=== PATIENT | female | born 1995 | race Caucasian/White ===

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

== ENCOUNTER 2019-12-24 12:53 | Outpatient (CLI) | payer MEDICAID ==
[~2019-12-24] VITALS: Ht 167.6 cm; Wt 101.4 kg
--- NOTE | 2019-12-24 12:50 | NUR ---
PATIENT HERE TO LR 6 WITH COMPLAINS OF CRAMPING IN ABDOMEN. PATIENT STATES SHE THINKS SHE HAS FOOD POISONING. SHE STATES HER POOP IS FORMED, BUT SOFT AND SMELLS LIKE HOT WINGS FROM LAST NIGHT. PATIENT HAS NOT HAD NAUSEA/ VOMITING. PATIENT ON EFM, SVE, ASSESEMENT OBTAINED. PATIENT HERE ALONE. WATER AND CRACKERS PROVIDED. PATIENT HAS 50 MLS EMESIS, CLEAR, WATERY. PATIENT DRINKING WATER AND EATING CRACKERS. PATIENT DENIES LEAKING OF FLUID, BLEEDING, MILD CRAMPY/ CONTRACTIONS. PATIENT CAN SIT UP IN BED TO BREATHE THROUGH CONTRACTIONS. BUTTON PROVIDED TO PATIENT TO PRESS WHEN HAVING CONTRACTIONS FOR ADEQUATE MONITORING
[2019-12-24 12:59] VITALS: BP 134/78; PULSE 81; TEMP 97.8
[2019-12-24 13:00] VITALS: BP 134/78; PULSE 103; TEMP 97.8
[2019-12-24] MEDS ORDERED: PRENATAL (13:05)
[2019-12-24 13:30] VITALS: BP 126/76; PULSE 85
[2019-12-24 14:00] VITALS: BP 118/80; PULSE 88
--- NOTE | 2019-12-24 14:00 | NUR ---
PATIENT ABLE TO KEEP CRACKERS AND WATER DOWN. PATIENT ASKED IF SHE IS ABLE TO WORK TONIGHT AT THE [employer]. I STATED TO PATIENT, LONG SHE FELT UP TO IT, YES
[2019-12-24 14:12] VITALS: BP 114/67; PULSE 99
== END 2019-12-24 14:30 | disposition home or self-care (01) ==
LOC: LDRO 12:53 → LDR 12:54 → LDRO 14:30
DX: O26.893 Other specified pregnancy related conditions, third trimester (principal); R25.2 Cramp and spasm; Z3A.38 38 weeks gestation of pregnancy
CPT/HCPCS: OP

== ENCOUNTER 2020-01-05 01:50 | Inpatient (IN) | payer MEDICAID ==
[~2020-01-05] VITALS: Ht 167.6 cm; Wt 101.8 kg
[2020-01-05] VITALS (12 sets, daily range): BP systolic 96–126; BP diastolic 10–73; PULSE 71–103; TEMP 98.1–98.6
[~2020-01-05 01:50] MED LIST changes: +PRENATAL
--- NOTE | 2020-01-05 02:00 | NUR ---
tounit for labor assessment, accompanied by significcant other. Oriented to room, monitor plan of care.
--- NOTE | 2020-01-05 03:15 | NUR ---
Luci PRINTER ASSISTANT into room for epidural placement. Pt to edge of bed for placement, FHT's to 90's with position change.
--- NOTE | 2020-01-05 03:20 | NUR ---
Pt reports "I'm having a lot of pressure still, will that epidural work soon?"
[2020-01-05 03:24] LABS: BASO % 0.2 % (0.0-2.0); EOS % 0.2 % (0-4.0); GRAN # 10.8 (1.4-6.5); GRAN % 72.1 % (42.2-75.2); HEMATOCRIT 37.7 % (37.0-47.0); HEMOGLOBIN 12.4 g/dl (12.5-16.0); LYMPH # 3.3 (1.2-3.4); LYMPH % 21.8 % (20.0-51.0); MEAN CELL VOLUME 85 fl (80.0-100.0); MEAN CORPUSCULAR HEMOGLOBIN 28 pg (27.0-31.0); MEAN CORPUSCULAR HGB CONC 33 g/dl (33.0-37.0); MEAN PLATELET VOLUME 10.3 fl (7.4-10.4); MONO # 0.8 (0.1-0.6); MONO % 5.2 % (1.7-9.3); PLATELET COUNT 307 K/mm3 (130-400); RED BLOOD COUNT 4.43 M/mm3 (4.10-5.30); REDCELL DISTRIBUTION WIDTH-CV 13.9 % (11.5-14.5)
--- NOTE | 2020-01-05 03:31 | NUR ---
FHT's to 80's with contraction. Dr Troy into room, BOW bulging past perineum, Dr Troy breaks bag ow water. PT set up for delivery. [address] Troy.
--- NOTE | 2020-01-05 03:42 | NUR ---
Placenta delivers spont and intact with 3 vessel cord. Pitocin gtt to bolus rate.
--- NOTE | 2020-01-05 07:30 | NUR ---
PT REFUSED COVID SWAB
[2020-01-06] MEDS ORDERED: IBU600 MG PO (08:53)
--- NOTE | 2020-01-06 09:10 | NUR ---
Initial visit; Parents thanked for offering congratulations for the of their son. thanked family for choosing [place].
[2020-01-06 09:15] VITALS: BP 102/50; PULSE 100; TEMP 97.8
== END 2020-01-06 14:40 | disposition home or self-care (01) | DRG 807 ==
LOC: LDRO 01:50 → OB 03:05 → LDR 03:05 → OB 07:20
PROVIDERS: ADMIT Obstetrics & Gynecology
PROC: 10E0XZZ Delivery of Products of Conception, External Approach (ICD-10-PCS; principal; 2020-01-05)
DX: O80 Encounter for full-term uncomplicated delivery (principal); Z37.0 Single live birth; Z3A.39 39 weeks gestation of pregnancy
CPT/HCPCS: J2590; J7120

== ENCOUNTER 2021-09-21 14:49 | Emergency (ER) | payer OTHER, MEDICAID ==
[~2021-09-21] VITALS: Ht 167.6 cm; Wt 90.9 kg
[~2021-09-21 14:49] MED LIST changes: +IBU600 MG PO
[2021-09-21 14:50] VITALS: TEMP 98.3
[2021-09-21 15:26] LABS: BASO % 0.3 % (0.0-2.0); EOS % 0.4 % (0.0-4.0); GRAN # 6.8 K/mm3 (1.4-6.5); GRAN % 65.7 % (42.2-75.2); HEMATOCRIT 38.5 % (37.0-47.0); HEMOGLOBIN 12.9 g/dl (12.5-16.0); LYMPH # 2.8 K/mm3 (1.2-3.4); LYMPH % 26.5 % (20.0-51.0); MEAN CELL VOLUME 87 fl (80.0-100.0); MEAN CORPUSCULAR HEMOGLOBIN 29 pg (27-31); MEAN CORPUSCULAR HGB CONC 34 g/dl (33.0-37.0); MEAN PLATELET VOLUME 9.3 fl (7.4-10.4); MONO # 0.7 K/mm3 (0.1-0.6); MONO % 6.7 % (1.7-9.3); PLATELET COUNT 340 K/mm3 (130-400); RED BLOOD COUNT 4.42 M/mm3 (4.10-5.30); REDCELL DISTRIBUTION WIDTH-CV 13.1 % (11.5-14.5)
[2021-09-21 15:44] LABS: ALANINE AMINOTRANSFERASE 12 U/L (0-55); ALBUMIN 3.2 gm/dL (3.5-5.0); ALKALINE PHOSPHATASE 93 U/L (40-150); ANION GAP 10 mmol/L (7-16); AST,SGOT 9 U/L (5-34); BILIRUBIN,TOTAL 0.2 mg/dL (0.2-1.2); BLOOD UREA NITROGEN 7 mg/dL (7-19); CALCIUM 8.8 mg/dL (8.4-10.2); CARBON DIOXIDE 21 mmol/L (22-29); CHLORIDE 109 mmol/L (98-107); CREATININE, serum 0.75 mg/dL (0.57-1.11); GLUCOSE 118 mg/dL (70-99); POTASSIUM 3.6 mmol/L (3.5-4.5); SODIUM 140 mmol/L (136-145); TOTAL PROTEIN 6.6 gm/dL (6.2-8.1)
[2021-09-21 15:45] LABS: ALCOHOL(ethanol),MEDICAL < 10 mg/dL (0-10)
[2021-09-21 17:38] VITALS: BP 127/88; PULSE 96
== END 2021-09-21 17:43 | disposition home or self-care (01) ==
LOC: COL.ER 14:49
PROVIDERS: Personal Emergency Response Attendant
DX: O9A.211 Injury, poisoning and certain other consequences of external causes complicating pregnancy, first trimester (principal); S30.1XXA Contusion of abdominal wall, initial encounter; S50.12XA Contusion of left forearm, initial encounter; S50.02XA Contusion of left elbow, initial encounter; S09.90XA Unspecified injury of head, initial encounter; T22.011A Burn of unspecified degree of right forearm, initial encounter; Z3A.01 Less than 8 weeks gestation of pregnancy; Z28.310 Unvaccinated for COVID-19; V89.2XXA Person injured in unspecified motor-vehicle accident, traffic, initial encounter; Y92.410 Unspecified street and highway as the place of occurrence of the external cause
CPT/HCPCS: Q9967

== ENCOUNTER 2022-05-14 00:31 | Inpatient (IN) | payer MEDICAID ==
[~2022-05-14] VITALS: Ht 167.6 cm; Wt 114.1 kg
[2022-05-14] VITALS (18 sets, daily range): BP systolic 100–164; BP diastolic 55–86; PULSE 62–104; TEMP 98–98.3
--- NOTE | 2022-05-14 00:45 | NUR ---
G5L2 at 40 weeks arrives to unit ambulatory with complaint of contractions every 5 minutes since around 2100. Pt states she had her membranes stripped on the and was dilated 3/50. Pt reports good movement, denies LOF, or vaginal bleeding. Pt denies headaches, blurry vision, or RUQ pain. Clean gown on. Pt oriented to room, call light within reach, bed in low and locked position. US and toco explained and applied. Vitals obtained. Admission assessment started. SVE 5/90/-1, bulging bag of water.
--- NOTE | 2022-05-14 01:25 | NUR ---
18G IV started in left forearm with 1 attempt. Admission labs obtained off IV start. Lactated ringers infusing to gravity. Consents reviewed with patient and spouse, all questions answered.
[2022-05-14 01:57] LABS: BASO % 0.2 % (0.0-2.0); EOS % 0.3 % (0.0-4.0); GRAN # 7.4 K/mm3 (1.4-6.5); GRAN % 66.9 % (42.2-75.2); HEMOGLOBIN 12.7 g/dl (12.5-16.0); LYMPH # 2.6 K/mm3 (1.2-3.4); LYMPH % 23.8 % (20.0-51.0); MEAN CELL VOLUME 85 fl (80.0-100.0); MEAN CORPUSCULAR HEMOGLOBIN 28 pg (27-31); MEAN CORPUSCULAR HGB CONC 33 g/dl (33.0-37.0); MEAN PLATELET VOLUME 10.6 fl (7.4-10.4); MONO # 0.9 K/mm3 (0.1-0.6); MONO % 8.3 % (1.7-9.3); PLATELET COUNT 329 K/mm3 (130-400); RED BLOOD COUNT 4.49 M/mm3 (4.10-5.30); REDCELL DISTRIBUTION WIDTH-CV 17.2 % (11.5-14.5)
--- NOTE | 2022-05-14 02:23 | NUR ---
0155 - Pt requesting epidural at this time. Johnathan Guillen CRNA notified, will come to hospital. 0215 - comes out to nurses station states that mother is pushing. SVE /0, will proceed with epidural. 0220 - STEVE Verma at bedside. Pt positioned to sitting on edge of bed. Epidural procedure, risks, and benefits reviewed with patient, verbalized understanding. 0223 - Single shot by STEVE Verma. Pt denies any adverse reactions. 0230 - Pt positioned to wedge right for comfort. Pt reports feeling more pressure. SVE /0 with bulging bag of water. Pillow support provided. Call light within reach, bed in low and locked position. Reviewed safety precautions. See anesthesia record.
--- NOTE | 2022-05-14 02:37 | NUR ---
Pt calls out stating she felt a small pop and is feeling more pressure. SVE complete with bulging bag of water. Dr. Thrasher notified for delivery.
--- NOTE | 2022-05-14 02:51 | NUR ---
0248 - Pt feeling rectal pressure with strong urge to push, encouraged patient to breath through contractions. Spontaneous rupture of membranes, large amount of clear fluid noted. 0250 - Nursery RN Stefany Maciel at bedside. Pt with strong urge to push, encouraged to breath through contractions and not push until doctor arrives. 0251 - Dr. Thrasher at bedside. Spontaneous delivery of viable infant boy. Nuchal cord x 1. Stimulated and bulb suctioned by Dr. Thrasher. Cord clamped x [address] Thrasher and cut by FOB. Infant moved to mothers abdomen, care of to Carlin Maciel RN. Cord blood obtained. 0253 - Spontaneous delivery of intact placenta. Small amount of bleeding noted. Fundus firm and down 1 from umbilicus. EBL [address] Thrasher. Perineum intact. Pitocin started at 333 mL/hr per protocol. 0300 - Pericare provided. New chux pad and ice pack to perineum. Pt repositioned in bed for comfort. recovery started. See physician delivery note.
--- NOTE | 2022-05-14 03:44 | NUR ---
Small amount of bleeding noted with fundal check. Fundus firm and down 1 from umbilicus. Pt reports feeling like her bladder is full and is uncomfortable. Straight cath done at this time with 100 mL clear, yellow urine out.
--- NOTE | 2022-05-14 05:35 | NUR ---
Pt able to lift and hold each leg off of bed for 5 seconds. Pt positioned to sitting on edge of bed. Epidural catheter removed. Tip smooth, blue, and intact. Pt able to ambulate to bathroom independently and void 400 mL blood tinged urine. Pt educated on need of 3 measured voids. Pericare explained and provided. Clean gown on. Mesh panties, peripad, and ice pack applied. Pt transferred to room 214 by wheelchair with belongings in stable condition.
--- NOTE | 2022-05-14 09:21 | NUR ---
Initial visit; Parents thanked Barrel Handler for offering congratulations and God's blessings for the of their son. Barrel Handler thanked family for choosing [place].
[2022-05-14] MEDS ORDERED: MOTRIN 800800 MG/TAB PO (18:29)
[2022-05-15 09:35] VITALS: BP 113/74; PULSE 74; TEMP 97.9
== END 2022-05-15 13:05 | disposition home or self-care (01) | DRG 807 ==
LOC: LDRO 00:31 → LDR 01:01 → OB 05:45
PROVIDERS: Obstetrics & Gynecology; ADMIT Obstetrics & Gynecology
PROC: 10E0XZZ Delivery of Products of Conception, External Approach (ICD-10-PCS; principal; 2022-05-14)
DX: O48.0 Post-term pregnancy (principal); Z37.0 Single live birth; Z3A.40 40 weeks gestation of pregnancy
CPT/HCPCS: J2590; J7120

== ENCOUNTER 2023-03-31 14:58 | Emergency (ER) | payer OTHER, MEDICAID ==
[~2023-03-31] VITALS: Ht 167.6 cm; Wt 90.9 kg
[~2023-03-31 14:58] MED LIST changes: +MOTRIN 800800 MG/TAB PO
[2023-03-31] MEDS ORDERED: Morphine 4 MG/ML VIAL IV ONE (16:45)
[2023-03-31] MEDS ORDERED: NS 1,000 ML IV ONE ×2 (16:45→18:45)
[2023-03-31] MEDS ORDERED: cefTRIAXone 2 G in Water For Injection,Sterile 20 ML IV ONE (16:45)
[2023-03-31] MEDS ORDERED: Ondansetron 4 MG/2 ML VIAL IV ONE (16:45)
[2023-03-31 17:11] LABS: BASO % 0.2 % (0.0-2.0); EOS % 0.1 % (0.0-4.0); GRAN # 12.9 K/mm3 (1.4-6.5); GRAN % 86.9 % (42.2-75.2); HEMATOCRIT 44.4 % (37.0-47.0); HEMOGLOBIN 14.9 g/dl (12.5-16.0); LYMPH # 1.2 K/mm3 (1.2-3.4); LYMPH % 8.3 % (20.0-51.0); MEAN CELL VOLUME 87 fl (80.0-100.0); MEAN CORPUSCULAR HEMOGLOBIN 29 pg (27-31); MEAN CORPUSCULAR HGB CONC 34 g/dl (33.0-37.0); MEAN PLATELET VOLUME 9.6 fl (7.4-10.4); MONO # 0.6 K/mm3 (0.1-0.6); MONO % 4.2 % (1.7-9.3); PLATELET COUNT 334 K/mm3 (130-400); REDCELL DISTRIBUTION WIDTH-CV 12.6 % (11.5-14.5)
[2023-03-31 17:33] LABS: ALBUMIN 3.7 gm/dL (3.5-5.0); BILIRUBIN,TOTAL 0.5 mg/dL (0.2-1.2); C-REACTIVE PROTEIN 2.9 mg/dL (0.00-0.50); CALCIUM 9.5 mg/dL (8.4-10.2); CREATININE, serum 0.97 mg/dL (0.57-1.11); POTASSIUM 3.9 mmol/L (3.5-4.5); TOTAL PROTEIN 7.8 gm/dL (6.2-8.1)
[2023-03-31] MEDS ORDERED: AMOXICILLIN 8751 TAB PO (18:34)
[2023-03-31] MEDS ORDERED: NORCO 325 MG-51 TAB PO (18:35)
[2023-03-31] MEDS ORDERED: Acetaminophen 500 MG TAB PO ONE (19:00)
[2023-03-31] MEDS ORDERED: Ibuprofen 400 MG TAB PO ONE (19:00)
[2023-03-31 19:58] VITALS: BP 104/74; PULSE 120; TEMP 100.4
== END 2023-03-31 20:11 | disposition home or self-care (01) ==
LOC: COL.ER 14:58
PROVIDERS: Family Medicine
DX: N61.0 Mastitis without abscess (principal)
CPT/HCPCS: J0696; J2270; J2405; J7030

== ENCOUNTER 2023-08-23 10:47 | Emergency (ER) | payer OTHER, MEDICAID ==
[~2023-08-23] VITALS: Ht 167.6 cm; Wt 101.4 kg
[2023-08-23] MEDS ORDERED: Ketorolac 30 MG/ML VIAL IM ONE (12:15)
[2023-08-23] MEDS ORDERED: FLEXERIL 1010 MG/TAB PO (13:01)
[2023-08-23 13:11] VITALS: BP 106/73; PULSE 74; TEMP 98.1
== END 2023-08-23 13:11 | disposition home or self-care (01) ==
LOC: COL.ER 10:47
DX: M62.838 Other muscle spasm (principal); X50.1XXA Overexertion from prolonged static or awkward postures, initial encounter
CPT/HCPCS: J1885; J2360